=== PATIENT | female | born 1970 | race Caucasian/White ===

== ENCOUNTER 2018-07-30 05:50 | Day surgery (SDC) | payer BC ==
[~2018-07-30] VITALS: Ht 152.4 cm; Wt 84.5 kg
[2018-07-30] VITALS (12 sets, daily range): BP systolic 102–121; BP diastolic 55–70; O2SAT 92–95
[~2018-07-30 05:50] MED LIST: ANAF50CA PO; MAGN64TASA PO; MAXA10TA14 PO; OXCA300T14 PO; PRAZ1CAP PO; PREG50CA PO; RANI300T PO; ROSU10TA5 PO; SERT-138 PO; TYLETAB14 PO; XELJ11TA PO
[2018-07-30 06:31] LABS: HEMATOCRIT 38.8 % (36.0-47.0); HEMOGLOBIN 12.3 g/dl (12.0-15.5); MEAN CORPUSCULAR HEMOGLOBIN 28.1 pg (27.0-33.0); MEAN CORPUSCULAR HGB CONC 31.7 g/dl (32.0-36.5); MEAN CORPUSCULAR VOLUME 88.8 fl (80.0-96.0); PLATELET COUNT, AUTOMATED 206 10^3/uL (150-450); RED BLOOD COUNT 4.37 10^6/uL (4.00-5.40); WHITE BLOOD COUNT 6.8 10^3/uL (4.0-10.0)
[2018-07-30] MEDS ORDERED: VASOPRESSIN INJ 20 UNITS/ML VIAL As Ordered ONE (06:59)
[2018-07-30] MEDS ORDERED: LR 1,000 ML IV ONE (07:00)
[2018-07-30] MEDS ORDERED: LIDOCAINE 2% INJ 100 MG/5 ML SDV (FOR ANES.) As Ordered ONE (07:24)
[2018-07-30] MEDS ORDERED: PROPOFOL 200 MG/20 ML VIAL As Ordered ONE (07:24)
[2018-07-30] MEDS ORDERED: fentaNYL 250 MCG/5 ML INJECTION (J3010) As Ordered ONE (07:24)
[2018-07-30] MEDS ORDERED: dexameTHASONE 4 MG/ML 1ML VIAL (J1100) As Ordered ONE (07:24)
[2018-07-30] MEDS ORDERED: ROCURONIUM BROMIDE 50 MG/5 ML VIAL As Ordered ONE (07:24)
[2018-07-30] MEDS ORDERED: MIDAZOLAM INJ 2 MG/2 ML VIAL (J2250) As Ordered ONE (07:25)
[2018-07-30] MEDS ORDERED: GLYCOPYRROLATE INJ 0.2 MG/ML 2 ML VIAL As Ordered ONE ×2 (08:13→08:20)
[2018-07-30] MEDS ORDERED: ACETAMINOPHEN 1000MG 100ML IV BTL (OFIRMEV) (J0131 PER 10MG) As Ordered ONE (08:19)
[2018-07-30] MEDS ORDERED: NEOSTIGMINE 10 MG/10 ML VIAL (J2710) As Ordered ONE (08:20)
[2018-07-30] MEDS ORDERED: KETOROLAC 60 MG/2 ML VIAL (J1885) As Ordered ONE (08:20)
[2018-07-30] MEDS ORDERED: HYDROmorphone HCL 2 MG/ML 1ML VIAL (J1170) As Ordered ONE (08:36)
[2018-07-30] MEDS ORDERED: METOCLOPRAMIDE INJ 10MG/2ML VIAL (J2765) As Ordered ONE (09:16)
[2018-07-30] MEDS ORDERED: ONDANSETRON 4MG/2ML VIAL (J2405) As Ordered ONE (09:16)
[2018-07-30] MEDS ORDERED: METHYLENE BLUE 0.5% (5MG/ML) 10 ML AMP (PROVAYBLUE)(Q9968 PER 1MG) As Ordered ONE (09:39)
[2018-07-30] MEDS ORDERED: MORPHINE 1MG/ML IN 0.9% NACL 100ML IV BAG As Ordered ONE (10:39)
[2018-07-30] MEDS ORDERED: NALOXONE INJ 0.4 MG/1 ML VIAL (J2310) IV PRN (11:00)
[2018-07-30] MEDS ORDERED: NALBUPHINE HCL 10 MG/ML AMP (J2300) IV PRN (11:00)
[2018-07-30] MEDS ORDERED: ONDANSETRON 4MG/2ML VIAL (J2405) IV PRN (11:00)
[2018-07-30] MEDS ORDERED: EPIDURAL/PCA KEYS XX PRN (11:00)
[2018-07-30] MEDS ORDERED: PERCOCET 5MG/325MG TAB PO PRN (11:00)
[2018-07-30] MEDS ORDERED: diphenhydrAMINE INJ 50MG/ML VIAL (J1200) IV PRN (11:00)
[2018-07-30] MEDS ORDERED: IBUPROFEN 600 MG TAB PO PRN (11:00)
[2018-07-30] MEDS ORDERED: fentaNYL 100 MCG/2 ML INJECTION (J3010) IV PRN (11:00)
[2018-07-30] MEDS ORDERED: LR 1,000 ML IV SCH (11:00)
[2018-07-30] MEDS ORDERED: MORPHINE 1MG/ML IN 0.9% NACL 100ML IV BAG IV PRN (11:00)
[2018-07-30] MEDS ORDERED: RIZATRIPTAN BENZOATE 10 MG TAB PO PRN (11:15)
[2018-07-30] MEDS: LR 1,000 ML IV SCH ×2 (14:44→22:05)
[2018-07-30] MEDS ORDERED: SERTRALINE 100 MG TAB PO SCH (21:00)
[2018-07-30] MEDS ORDERED: OXcarbazepine 300 MG TAB PO SCH (21:00)
[2018-07-30] MEDS ORDERED: PRAZOSIN 1 MG CAP PO SCH (21:00)
[2018-07-30] MEDS: PREGABALIN 50 MG CAP (LYRICA) PO SCH (21:50)
[2018-07-31] VITALS: BP 114/64; O2SAT 96
[2018-07-31 04:00] VITALS: BP 111/60; O2SAT 96
[2018-07-31] MEDS: LR 1,000 ML IV SCH (04:53)
[2018-07-31 06:00] VITALS: O2SAT 97
[2018-07-31] MEDS ORDERED: NORCO, ANEXSIA 5/325MG TABLET (HYDROcodone/ACETAMINOPHEN) PO PRN (06:00)
[2018-07-31 07:58] LABS: HEMATOCRIT 34.3 % (36.0-47.0); HEMOGLOBIN 10.7 g/dl (12.0-15.5); MEAN CORPUSCULAR HEMOGLOBIN 27.9 pg (27.0-33.0); MEAN CORPUSCULAR HGB CONC 31.2 g/dl (32.0-36.5); MEAN CORPUSCULAR VOLUME 89.3 fl (80.0-96.0); PLATELET COUNT, AUTOMATED 208 10^3/uL (150-450); RED BLOOD COUNT 3.84 10^6/uL (4.00-5.40); WHITE BLOOD COUNT 11.2 10^3/uL (4.0-10.0)
[2018-07-31 08:00] VITALS: BP 108/59; O2SAT 94
[2018-07-31] MEDS: PREGABALIN 50 MG CAP (LYRICA) PO SCH (08:47)
[2018-07-31] MEDS ORDERED: ROSUVASTATIN 10 MG TAB (CRESTOR) PO SCH (09:00)
--- NOTE | 2018-07-31 12:13 | RO ---
DATE OF PROCEDURE: 07/30/2018 PREPROCEDURE DIAGNOSIS: Symptomatic prolapse. POSTPROCEDURE DIAGNOSIS: Symptomatic prolapse. PROCEDURE: Total vaginal hysterectomy with salpingectomy (patient has scarring from her tubal against her ovaries which she wished to keep so she had a fimbriectomy bilaterally, but there is a Filshie clip on the left side that was stuck to the ovary and the ovarian blood supply, so it is still in place), sacrospinous suspension with anterior and posterior repair, perineorrhaphy and cystoscopy. SURGEON: Dr. Evelyn Nieves SCORING MACHINE OPERATOR: Melanie Luna ANESTHESIA: General endotracheal anesthesia. DESCRIPTION OF PROCEDURE: Elise was brought to the operating room where sufficient general endotracheal anesthesia was induced and she was prepped, draped and positioned in the usual sterile fashion with the bladder emptied and the anterior and posterior aspect of the cervix grasped with single tooth tenacula. A circumferential incision was made around the base of the cervix. Sharp and blunt dissection were continued through the subcutaneous tissues to isolate the cardinal ligaments which were clamped with De Bal clamps, which were used throughout this portion of the case, transected, and then ligated with #0 Vicryl, which was also used throughout this portion of the case. We then isolated the uterosacrals, clamped, transected and ligated them; of course, entering the peritoneum and marking them for later reconnection at the cuff. Then, continued the dissection anteriorly to protect the bladder and then dissected along the lateral aspects of the uterus to secure the uterine blood supply and the uterus was eventually delivered. We then with the uterus out of the way used [place] clamps to draw down the tubes. We were able to get the entirety of the right tube. I did not see a Filshie clip there. There was scarring, but I could not actually see it, so it may have come off at some point in the past. On the left side, we were able to get the fimbria in the proximal tube, but in the mid tube where the tubal was done the Filshie clip was stuck to the left ovary and the ovarian blood supply, and the patient wanted to keep her ovaries, so we left that, but we were able to get fimbria bilaterally. We then placed angle stitches and closed the peritoneum for enterocele on the perineum with a pursestring suture and then dissected posteriorly through the rectovaginal space so we could then dissect out laterally on the right side to the sacrospinous ligament. We then used anchors to place Maxon sutures, the green suture. We placed two sutures in each anchor, so we placed two anchors two sutures each, so four sutures, all of #2-0 Maxon, which is a delayed absorbable. We then using a four point technique in the vagina with it dissected away from the underlying tissues placed the sacrospinous suspension sutures and then closed the vaginal cuff and did a partial posterior repair as well plicating the uterosacrals. There was good hemostasis and approximation of the vaginal cuff. We then brought down all four of those sutures. They were through and through and were used to elevate the vagina. After we had drawn those up, one throw each, we went ahead with them under tension and did a cystourethroscopy where we saw normal jets of urine bilaterally and absence of any suture in the bladder or injury to the bladder. There was also no evidence of problem from the patient's previous midurethral sling as well. We then went ahead and finished off the rest of the throws. Then, we already with the aggressive anterior aspect of the sacrospinous and the dissection anteriorly and the peritoneal closure already done, and the anterior repair, and the apical portion of the posterior repair, we then did a perineorrhaphy and a distal posterior repair at the perineum, closing the gaping genital hiatus and plicating the levators and then closing the vaginal tissue over that. There was a small amount of redundant tissue we removed as well. We also resupported the perineal body and reconnected it to the rectovaginal septum. On exam after the closure, confirmed good closure without injury to the rectum, etc. We then placed a vaginal pack and placed a Herrmann. The procedure was then ended. Estimated blood loss was about 100 mL. Fluid replacement was crystalloid. Complications: None. Condition and Disposition: Elise tolerated the procedure well and was recovering in the recovery room in good condition.
== END 2018-07-31 10:28 | disposition home or self-care (01) ==
LOC: M SDC 05:50 → M PED 11:55 → M SDC 07-31 10:28
PROVIDERS: ATTEND Obstetrics & Gynecology
DX: N81.89 Other female genital prolapse (principal); I10 Essential (primary) hypertension; K21.9 Gastro-esophageal reflux disease without esophagitis; G47.30 Sleep apnea, unspecified; E78.5 Hyperlipidemia, unspecified; F41.9 Anxiety disorder, unspecified; F32.9 Major depressive disorder, single episode, unspecified; Z88.8 Allergy status to other drugs, medicaments and biological substances; Z79.899 Other long term (current) drug therapy
CPT/HCPCS: 36415; 57260; 57282; 58262; 85027; 86850; 86900; 86901; 88307; C1713; J0131; J0690; J1100; J1170; J1885; J2250; J2405; J2710; J2765; J3010; Q9968